=== PATIENT | female | born 2005 | race Caucasian/White ===

== ENCOUNTER 2024-01-11 12:58 | Emergency (ER) | payer BC ==
[~2024-01-11] VITALS: Ht 170.2 cm; Wt 79.4 kg
[2024-01-11 13:35] VITALS: BP_SYST 125; PULSE 97; RESP 18; TEMP 97.9; O2SAT 97
[2024-01-11] MEDS ORDERED: HYDR-3917 PO (16:15)
[2024-01-11] MEDS ORDERED: IBUP-1969 PO (16:15)
[2024-01-11 18:28] VITALS: BP_SYST 124; PULSE 95; RESP 16; TEMP 97.6; O2SAT 98
== END 2024-01-11 18:23 | disposition home or self-care (01) ==
LOC: SED 12:58
DX: S30.0XXA Contusion of lower back and pelvis, initial encounter (principal); W18.39XA Other fall on same level, initial encounter; Y93.89 Activity, other specified; Y92.89 Other specified places as the place of occurrence of the external cause; Y99.8 Other external cause status
CPT/HCPCS: 72170-TC; 81025; 99283